=== PATIENT | male | born 1945 | race Caucasian/White ===

== ENCOUNTER 2024-08-10 08:04 | Emergency (ER) | payer MEDICARE ==
[~2024-08-10] VITALS: Ht 172.7 cm; Wt 115.7 kg
[2024-08-10] MEDS ORDERED: Methocarbamol750 MG PO (08:18)
[2024-08-10] MEDS ORDERED: METOPROLOL TART5010 PO (08:18)
[2024-08-10] MEDS ORDERED: Ketorolac Tromethamine 15mg Vial IV ONE (08:55)
[2024-08-10] MEDS ORDERED: Acetaminophen 500 MG Tab PO ONE (08:55)
[2024-08-10] MEDS ORDERED: Dexamethasone Sod Phos 10 MG/ML 1ML VIAL IV ONE (08:55)
[2024-08-10] MEDS ORDERED: HYDROmorphone HCl/Pf 1MG SYR IV ONE (08:55)
[2024-08-10 11:03] VITALS: BP 186/93
[2024-08-10] MEDS ORDERED: OXAYDO5 M1 PO (11:03)
== END 2024-08-10 11:39 | disposition home or self-care (01) ==
LOC: ER 08:04
DX: M54.50 Low back pain, unspecified (principal); G89.29 Other chronic pain; Z88.0 Allergy status to penicillin; Z88.2 Allergy status to sulfonamides
CPT/HCPCS: 72128; 72131; 93005; 93010; 96374; 96375; 99284-25; A9270; J1100; J1171; J1885

== ENCOUNTER 2024-08-23 13:26 | Emergency (ER) | payer MEDICARE ==
[~2024-08-23 13:26] MED LIST: METOPROLOL TART5010 PO; Methocarbamol750 MG PO; OXAYDO5 M1 PO
== END 2024-08-23 13:42 | disposition left against medical advice (07) ==
LOC: ER 13:26
DX: R26.89 Other abnormalities of gait and mobility (principal); Z53.21 Procedure and treatment not carried out due to patient leaving prior to being seen by health care provider

== ENCOUNTER 2024-09-11 10:44 | Emergency (ER) | payer MEDICARE ==
[~2024-09-11] VITALS: Ht 172.7 cm; Wt 112.5 kg
[2024-09-11 11:17] LABS: BASOPHILS ABSOLUTE AUTO 0.03 K/mm3 (0.00-0.23); BASOPHILS PERCENT AUTO 1 % (0-2); EOSINOPHILS ABSOLUTE AUTO 0.04 K/mm3 (0.00-0.68); EOSINOPHILS PERCENT AUTO 1 % (0-6); Hematocrit 30.7 % (37.0-53.0); Hemoglobin 10.5 g/dL (13.5-17.5); IMMATURE GRAN ABSOLUTE AUTO 0.02 K/mm3 (0.00-0.10); IMMATURE GRAN PERCENT AUTO 1 % (0-1); LYMPHOCYTES ABSOLUTE AUTO 1.22 K/mm3 (0.84-5.20); LYMPHOCYTES PERCENT AUTO 37 % (21-46); MONOCYTES ABSOLUTE AUTO 0.29 K/mm3 (0.16-1.47); MONOCYTES PERCENT AUTO 9 % (4-13); Mean Corpuscular HGB 34.4 pg (26.0-34.0); Mean Corpuscular HGB Conc 34.2 g/dL (31.5-36.5); Mean Corpuscular Volume 101 fL (80-100); Mean Platelet Volume 9.9 fL (9.1-12.4); NEUTROPHILS ABSOLUTE AUTO 1.72 K/mm3 (1.96-9.15); NEUTROPHILS PERCENT AUTO 52 % (41-73); Platelet Count 88 K/mm3 (150-400); RDW Coefficient Variation 14.6 % (11.7-14.2); RDW Standard Deviation 53.8 fL (35.1-46.3); Red Blood Cell Count 3.05 M/mm3 (4.30-5.90); White Blood Cell Count 3.32 K/mm3 (4.00-11.30)
[2024-09-11 11:47] LABS: Albumin, Blood 3.4 g/dL (3.4-5.0); Albumin/Globulin Ratio 0.8 (0.8-1.8); Bilirubin, Total 0.5 mg/dL (0.1-1.0); Bun/Creatinine Ratio 9.1 (12.0-20.0); Calcium, Blood 10.2 mg/dL (8.5-10.1); Creatinine, Blood 0.99 mg/dL (0.60-1.20); Globulin, Blood 4.1 g/dL (2.2-4.0); Potassium, Blood 3.5 mmol/L (3.5-5.5); Total Protein, Blood 7.5 g/dL (6.4-8.2)
[2024-09-11] MEDS ORDERED: Acetaminophen 500 MG Tab PO ONE (12:15)
[2024-09-11] MEDS ORDERED: Gabapentin 300 MG Cap PO ONE (12:15)
[2024-09-11] MEDS ORDERED: Dexamethasone Sod Phos 10 MG/ML 1ML VIAL IV ONE (12:15)
[2024-09-11 14:24] VITALS: BP 159/92
[2024-09-11] MEDS ORDERED: Ketamine HCl 100 MG / ML 5ML Vial IV ONE (15:10)
== END 2024-09-11 16:17 | disposition home or self-care (01) ==
LOC: ER 10:44
PROVIDERS: Student in an Organized Health Care Education/Training Program
DX: M54.50 Low back pain, unspecified (principal); G89.29 Other chronic pain; R07.9 Chest pain, unspecified; Z88.0 Allergy status to penicillin; Z88.2 Allergy status to sulfonamides; Z91.018 Allergy to other foods
CPT/HCPCS: 71046; 72100; 80053; 83690; 84484; 85025; 93005; 93010; 96374; 99285-25; A9270; J1100

== ENCOUNTER 2024-10-09 03:36 | Emergency (ER) | payer MEDICARE ==
[~2024-10-09] VITALS: Ht 177.8 cm; Wt 111.1 kg
[2024-10-09] MEDS ORDERED: Ketorolac Tromethamine 30mg Vial IM ONE (06:10)
[2024-10-09] MEDS ORDERED: Methyl Salicylate/Menth/Camph 57 GM TUBE TOP ONE (06:10)
[2024-10-09] MEDS ORDERED: Morphine Sulfate 4 MG/1 ML Injection IV ONE (06:30)
[2024-10-09] MEDS ORDERED: Ketorolac Tromethamine 30mg Vial IV ONE ×2 (06:35→10:20)
[2024-10-09 07:48] LABS: BASOPHILS ABSOLUTE AUTO 0.04 K/mm3 (0.00-0.23); BASOPHILS PERCENT AUTO 1 % (0-2); EOSINOPHILS ABSOLUTE AUTO 0.04 K/mm3 (0.00-0.68); EOSINOPHILS PERCENT AUTO 1 % (0-6); Hematocrit 31.2 % (37.0-53.0); Hemoglobin 10.5 g/dL (13.5-17.5); IMMATURE GRAN ABSOLUTE AUTO 0.01 K/mm3 (0.00-0.10); IMMATURE GRAN PERCENT AUTO 0 % (0-1); LYMPHOCYTES ABSOLUTE AUTO 1.46 K/mm3 (0.84-5.20); LYMPHOCYTES PERCENT AUTO 44 % (21-46); MONOCYTES ABSOLUTE AUTO 0.27 K/mm3 (0.16-1.47); MONOCYTES PERCENT AUTO 8 % (4-13); Mean Corpuscular HGB Conc 33.7 g/dL (31.5-36.5); Mean Corpuscular Volume 102 fL (80-100); NEUTROPHILS ABSOLUTE AUTO 1.49 K/mm3 (1.96-9.15); NEUTROPHILS PERCENT AUTO 45 % (41-73); NRBC ABSOLUTE 0.00 K/mm3 (0.00-0.02); NRBC Auto 0.0 /100 WBC (0.0-0.2); Platelet Count 87 K/mm3 (150-400); RDW Coefficient Variation 14.7 % (11.7-14.2); RDW Standard Deviation 55.1 fL (35.1-46.3)
[2024-10-09 08:13] LABS: Alanine Aminotransfer (ALT/SGP 26.0 U/L (12-78); Albumin, Blood 3.3 g/dL (3.4-5.0); Albumin/Globulin Ratio 0.9 (0.8-1.8); Anion Gap 10.0 mmol/L (3-11); Aspartate Aminotrans (AST/SGOT 30.0 U/L (12-37); Bilirubin, Total 0.7 mg/dL (0.1-1.0); Blood Urea Nitrogen 9.0 mg/dL (8-24); CO2, Blood 25.0 mmol/L (21-32); Calcium, Blood 8.8 mg/dL (8.5-10.1); Chloride, Blood 99.0 mmol/L (98-108); Creatinine, Blood 0.88 mg/dL (0.60-1.20); Globulin, Blood 3.7 g/dL (2.2-4.0); Glucose, Blood 113.0 mg/dL (70-99); Magnesium, Blood 2.0 mg/dL (1.6-2.4); Potassium, Blood 3.6 mmol/L (3.5-5.5); Sodium, Blood 130.0 mmol/L (136-145); Total Protein, Blood 7.0 g/dL (6.4-8.2)
[2024-10-09] MEDS ORDERED: Robaxin750 MG PO (10:20)
[2024-10-09] MEDS ORDERED: IBUP400 PO (10:20)
[2024-10-09 11:50] VITALS: BP 151/86
== END 2024-10-09 12:05 | disposition home or self-care (01) ==
LOC: ER 03:36
PROVIDERS: Student in an Organized Health Care Education/Training Program
DX: M25.551 Pain in right hip (principal); M25.552 Pain in left hip; M54.50 Low back pain, unspecified; G89.29 Other chronic pain; K40.90 Unilateral inguinal hernia, without obstruction or gangrene, not specified as recurrent; E87.1 Hypo-osmolality and hyponatremia; Z91.81 History of falling; Z98.1 Arthrodesis status; Z85.72 Personal history of non-Hodgkin lymphomas; Z91.018 Allergy to other foods; Z88.0 Allergy status to penicillin; Z88.2 Allergy status to sulfonamides; Z79.899 Other long term (current) drug therapy
CPT/HCPCS: 72192; 73522; 80053; 83735; 83880; 85025; 93005; 93010; 96374; 96375; 96376; 99284-25; A9270; J1885; J2270